=== PATIENT | male | born 1995 | race Two or more races ===

== ENCOUNTER 2020-12-21 04:57 | Inpatient (IN) | payer OTHER ==
[~2020-12-21] VITALS: Ht 172.7 cm; Wt 94.3 kg
[2020-12-21] MEDS ORDERED: EPINEPHrine 1:1,000 [1 MG/ML] AMP ONE (05:11)
[2020-12-21] MEDS ORDERED: IPRATROPIUM BROMIDE 0.5 MG/2.5 ML NEB SOLUTION NEB ONE (05:15)
[2020-12-21] MEDS ORDERED: EPINEPHrine 1:1,000 [1 MG/ML] AMP SQ ONE (05:15)
[2020-12-21] MEDS ORDERED: MethylPREDNISolone SOD SUCC 125 MG/2 ML VIAL IVP ONE (05:15)
[2020-12-21] MEDS ORDERED: ALBUTEROL SULFATE 2.5 MG/0.5 ML NEB SOLUTION NEB ONE (05:15)
[2020-12-21 05:30] LABS: BASOPHILS % (AUTO) 0.7 % (0.0-2.0); EOSINOPHILS % (AUTO) 6.4 % (1.0-6.0); HEMATOCRIT 48.7 % (41-53); HEMOGLOBIN 16.7 g/dL (13.5-17.5); LYMPHOCYTES % (AUTO) 18.5 % (22.0-44.0); MEAN CORPUSCULAR HEMOGLOBIN 31.3 pg (26.0-34.0); MEAN CORPUSCULAR HGB CONC 34.2 G/dL (31.0-37.0); MEAN CORPUSCULAR VOLUME 92 fL (80-100); MONOCYTES # (AUTO) 1.1 K/uL (0.1-1.0); NEUTROPHILS # (AUTO) 10.8 K/uL (1.8-7.7); NEUTROPHILS % (AUTO) 67.4 % (40.0-70.0); PLATELET COUNT (AUTO) 220 K/uL (150-450); RED BLOOD CELL COUNT(AUTO) 5.33 MIL/uL (4.50-5.90); RED CELL DISTRIBUTION WIDTH 13.3 % (11.5-14.5)
[2020-12-21 05:39] LABS: ANION GAP 11 mmol/L (8-16); CALCIUM, TOTAL 9.3 mg/dL (8.8-10.5); CARBON DIOXIDE 27 mmol/L (22-29); CHLORIDE 102 mmol/L (98-107); CREATININE 0.79 mg/dL (0.60-1.30); GLOMERULAR FILTR. RATE CALC > 60 mL/min (>60); GLUCOSE,RANDOM 105 mg/dL (70-110); POTASSIUM 3.9 mmol/L (3.5-5.1); SODIUM SERUM 140 mmol/L (136-145); UREA NITROGEN, BLOOD 10 mg/dL (7-18)
[2020-12-21 05:44] LABS: ALANINE AMINOTRANSFERASE 27 U/L (12-78); ALBUMIN 4.7 g/dL (3.4-5.0); ALKALINE PHOSPHATASE 99 U/L (46-116); ASPARTATE AMINOTRANSFERASE 16 U/L (15-37); BILIRUBIN,TOTAL 0.3 mg/dL (0.1-1.0); TOTAL PROTEIN, SERUM 8.1 g/dL (6.4-8.2)
[2020-12-21] MEDS ORDERED: ALBUTEROL SULFATE 5 MG/ML 20 ML NEB SOLN [BULK] NEB ONE (05:45)
[2020-12-21 05:56] LABS: ABG A-A DIFF O2 163.4 mmHg (10-20.0); ABG BASE EXCESS -2.3 mmol/L (-2.0-3.0); ABG HCO3 22.6 mmol/L (22.0-26.0); ABG METHEMOGLOBIN 0.3 % (0.0-1.5); ABG OXYGEN CONTENT 23.3 mL/dL (15.0-23.0); ABG OXYGEN SATURATION 97.9 % (95.0-98.0); ABG OXYHEMOGLOBIN 97.6 % (94.0-100.0); ABG PCO2 43 mmHg (35-45); ABG PH 7.351 (7.350-7.450); ABG TOTAL HEMOGLOBIN 16.9 G/dL (12.0-18.0); PO2, ARTERIAL BG 108.4 mmHg (80.0-100.0); SITE, BLOOD GAS LFT RADIAL; SOURCE, BLOOD GAS ARTERIAL; TEMPERATURE, FAHRENHEIT, BG 98.6 FAHREN (96.0-98.6)
[2020-12-21 05:57] LABS: O2 DEVICE,BLOOD GAS AEROSOL MASK (ROOM AIR)
[2020-12-21] MEDS ORDERED: ACETAMINOPHEN 325 MG TABLET PO PRN ×2 (06:15→14:00)
[2020-12-21] MEDS ORDERED: ONDANSETRON HCL 4 MG/2 ML VIAL IVP PRN ×2 (06:15→14:00)
[2020-12-21] MEDS ORDERED: 0.9% SODIUM CHLORIDE 10 ML SYRINGE IVP PRN (06:15)
[2020-12-21 06:33] LABS: COVID AG,FIA SOURCE NASOPHARYNGEAL
[2020-12-21 07:00] LABS: INFLUENZA TYPE A NEGATIVE FOR TYPE A (NEGATIVE); INFLUENZA TYPE B NEGATIVE FOR TYPE B (NEGATIVE)
[2020-12-21] MEDS: IPRATROPIUM BROMIDE 0.5 MG/2.5 ML NEB SOLUTION NEB SCH ×4 (07:17→20:00)
[2020-12-21] MEDS: ALBUTEROL SULFATE 2.5 MG/0.5 ML NEB SOLUTION NEB SCH ×4 (07:17→20:00)
[2020-12-21] MEDS ORDERED: OXYGEN THERAPY IH SCH (08:00)
[2020-12-21 11:00] VITALS: BP 120/64
[2020-12-21] MEDS ORDERED: ALBUTEROL SULFATE 2.5 MG/0.5 ML NEB SOLUTION NEB PRN (14:00)
[2020-12-21] MEDS ORDERED: ZOLPIDEM TARTRATE 5 MG TABLET PO PRN (14:00)
[2020-12-21] MEDS ORDERED: HYDROCODONE/ACETAMINOPHEN 5-325 MG TABLET PO PRN (14:00)
[2020-12-21] MEDS ORDERED: MORPHINE SULFATE 2 MG/ML SYRINGE IVP PRN (14:00)
[2020-12-21] MEDS ORDERED: IPRATROPIUM BROMIDE 0.5 MG/2.5 ML NEB SOLUTION NEB PRN (14:00)
[2020-12-21] MEDS ORDERED: BISACODYL 10 MG RECTAL RECTAL SUPPOSITORY PR PRN (14:00)
[2020-12-21] MEDS ORDERED: MAGNESIUM HYDROXIDE SUSPENSION 30 ML UDCUP PO PRN (14:00)
[2020-12-21] MEDS ORDERED: SODIUM CHLORIDE 0.9% 250 ML IV ONE (15:59)
[2020-12-21 16:03] VITALS: BP 118/59
[2020-12-21] MEDS: CefTRIAXone 1 GM/DEXTROSE 50 ML IV SCH (16:10)
[2020-12-21] MEDS: BENZONATATE 100 MG CAPSULE PO SCH ×2 (16:11→19:59)
[2020-12-21] MEDS: HEPARIN SODIUM,PORCINE 5,000 UNITS/ML VIAL SQ SCH (16:11)
[2020-12-21] MEDS ORDERED: AZITHROMYCIN 500 MG/NS 250 ML IV SCH (17:00)
[2020-12-21] MEDS: MethylPREDNISolone SOD SUCC 125 MG/2 ML VIAL IVP SCH (19:02)
[2020-12-21 19:30] VITALS: BP 116/50
[2020-12-21] MEDS: DOCUSATE SODIUM 100 MG CAPSULE PO SCH (19:59)
[2020-12-21] MEDS: GuaiFENesin SR 600 MG ER TABLET PO SCH (19:59)
[2020-12-22] MEDS: MethylPREDNISolone SOD SUCC 125 MG/2 ML VIAL IVP SCH ×3 (00:07→12:57)
[2020-12-22 00:08] VITALS: BP 117/45
[2020-12-22] MEDS: HEPARIN SODIUM,PORCINE 5,000 UNITS/ML VIAL SQ SCH ×3 (00:08→16:00)
[2020-12-22] MEDS: ALBUTEROL SULFATE 2.5 MG/0.5 ML NEB SOLUTION NEB SCH ×3 (02:13→13:59)
[2020-12-22] MEDS: IPRATROPIUM BROMIDE 0.5 MG/2.5 ML NEB SOLUTION NEB SCH ×3 (02:13→13:59)
[2020-12-22 05:11] VITALS: BP 115/51
[2020-12-22 07:48] VITALS: BP 114/82
[2020-12-22] MEDS: BENZONATATE 100 MG CAPSULE PO SCH ×2 (08:51→16:00)
[2020-12-22] MEDS: GuaiFENesin SR 600 MG ER TABLET PO SCH (08:51)
[2020-12-22] MEDS: DOCUSATE SODIUM 100 MG CAPSULE PO SCH (08:52)
[2020-12-22] MEDS ORDERED: PANTOPRAZOLE SODIUM 40 MG DR TABLET PO SCH (09:00)
[2020-12-22 11:09] VITALS: BP 128/70
[2020-12-22] MEDS ORDERED: IPRAHFA IH (15:12)
[2020-12-22] MEDS ORDERED: OMEP20 PO (15:13)
[2020-12-22 15:15] VITALS: BP 113/51
[2020-12-22] MEDS ORDERED: ALBU8HFA IH (15:18)
[2020-12-22] MEDS ORDERED: BENZ-70 PO (15:19)
[2020-12-22] MEDS ORDERED: PRED20 PO (15:23)
[2020-12-22] MEDS: CefTRIAXone 1 GM/DEXTROSE 50 ML IV SCH (16:00)
== END 2020-12-22 17:20 | DRG 202 ==
LOC: EMS 04:59 → 5S 09:26 → EMS 10:49
PROVIDERS: ADMIT Internal Medicine; ATTEND Internal Medicine
DX: J45.901 Unspecified asthma with (acute) exacerbation (principal); E87.2 Acidosis; E66.3 Overweight; D72.829 Elevated white blood cell count, unspecified; Z20.822 Contact with and (suspected) exposure to COVID-19; Z68.31 Body mass index [BMI] 31.0-31.9, adult
CPT/HCPCS: 36600; 71045; 80053; 82805; 84484; 85025; 87804; 93005; 94640; 94644; 99291; J0171; J0456; J0696; J1644; J2930; J7050; 36415-L1; 36415-TC; J7613